=== PATIENT | female | born 1945 | race Caucasian/White ===

== ENCOUNTER 2021-12-10 13:42 | Outpatient (CLI) | payer MEDICARE, BC ==
--- NOTE | 2021-12-10 12:52 | XRAY Report ---
PROCEDURE: Chest 2 View X-Ray INDICATIONS: EXERTIONAL SHORTNESS OF BREATH TECHNIQUE: 2 view(s) of the chest. COMPARISON: None. FINDINGS: Surgical changes and devices: None. Lungs and pleura: No dense consolidation. Platelike atelectasis or scarring at the left base. No ple ural effusions. Mediastinum: Borderline size heart. Bones and chest wall: Spondylotic changes of the thoracolumbar spine. IMPRESSION: No acute radiographic abnormality. Suspected platelike atelectasis or scarring seen at t he left base. No pleural effusion or dense consolidation. Reviewed by: Benito Brandon MD on 12/10/2021 12:51 PM PDT Approved by: Benito Brandon MD on 12/10/2021 12:51 PM PDT Station ID: [id number]
== END 2021-12-10 13:43 | disposition home or self-care (01) ==
LOC: DI.S 13:42
PROVIDERS: ATTEND Physician Assistant Medical
DX: R06.09 Other forms of dyspnea (principal); R05.9 Cough, unspecified; R91.8 Other nonspecific abnormal finding of lung field